=== PATIENT | female | born 1955 | race Caucasian/White ===

== ENCOUNTER → 2020-07-09 | Outpatient (CLI) | payer OTHER | LOC: M.RAD 07:18 | PROVIDERS: ATTEND Family Medicine | DX: Z12.31 Encounter for screening mammogram for malignant neoplasm of breast (principal); E55.9 Vitamin D deficiency, unspecified; M85.88 Other specified disorders of bone density and structure, other site; Z78.0 Asymptomatic menopausal state ==

== ENCOUNTER 2020-12-11 15:06 | Emergency (ER) | payer OTHER ==
[~2020-12-11] VITALS: Ht 160 cm; Wt 56.2 kg
[2020-12-11] MEDS ORDERED: APAP W/CODEINE1 TA2 PO (16:57)
[2020-12-11 17:23] VITALS: BP 133/67
== END 2020-12-11 17:23 | disposition home or self-care (01) ==
LOC: M.ERS 15:06
DX: S52.592A Other fractures of lower end of left radius, initial encounter for closed fracture (principal); S52.692A Other fracture of lower end of left ulna, initial encounter for closed fracture; E78.5 Hyperlipidemia, unspecified; W11.XXXA Fall on and from ladder, initial encounter; Y93.89 Activity, other specified; Y92.89 Other specified places as the place of occurrence of the external cause; Y99.8 Other external cause status